=== PATIENT | female | born 1960 | race Caucasian/White ===

== ENCOUNTER 2017-03-06 13:46 | Emergency (ER) | payer BC, OTHER ==
[~2017-03-06] VITALS: Ht 162.6 cm; Wt 78.4 kg
[2017-03-06 14:02] VITALS: Ht 162.6 cm; Wt 78.4 kg
[2017-03-06] MEDS ORDERED: ONDANSETRON (ODT) 4 MG TAB ODT STA (14:21)
--- NOTE | 2017-03-06 14:26 | ERD ---
ER Documentation Chief Complaint Chief Complaint Pt with RUQ pain x2 and vomiting. Had butch 1 week ago. HPI Patient is a 56-year-old female who presents with gradual onset, constant, moderate epigastric and right upper quadrant pain for 4 days associated with vomiting. The patient had a cholecystectomy at [facility] by Dr. Douglas 8 days ago. She states that she missed a follow-up appointment 4 days ago and has been unable to arrange follow-up with him since that time. She denies fever but states that she feels hot and cold at night. She reports being constipated but had a small bowel movement yesterday. She denies dysuria. ROS All systems reviewed and are negative except as per history of present illness. Medications Home Meds Active Scripts Polyethylene Glycol* (Miralax*) 17 Gm Powd.pack, 17 GM PO DAILY, #7 Prov:EARNESTINE BRENNER MD 03/06/17 Famotidine* (Pepcid*) 20 Mg Tablet, 20 MG PO BID for 7 Days, TAB Prov:EARNESTINE BRENNER MD 03/06/17 Tramadol HCl (Tramadol HCl) 50 Mg Tablet, 50 MG PO Q4 Y for PAIN, #20 TAB Prov:EARNESTINE BRENNER MD 03/06/17 Allergies Allergies: Coded Allergies: No Known Allergy (Unverified , 03/06/17) PMhx/Soc Past medical history: Diabetes mellitus Past surgical history: Cholecystectomy, , leg surgery Social history: Denies tobacco or alcohol FmHx Noncontributory Physical Exam Vitals Vital Signs Date Time Temp Pulse Resp B/P Pulse Ox O2 Delivery O2 Flow Rate FiO2 03/06/17 15:21 97.7 03/06/17 14:02 99.6 78 18 181/88 98 Physical Exam Const: Alert, appears mildly uncomfortable Head: Atraumatic Eyes: Normal Conjunctiva, No pallor, no icterus ENT: Normal External Ears, Nose and Mouth. Mucous membranes moist Neck: Full range of motion. Resp: Clear to auscultation bilaterally, No wheezes, no rales Cardio: Regular rate and rhythm, no murmurs Abd: Soft, Nondistended, tender in the right upper quadrant and epigastrium without rebound or guarding Skin: No petechiae or rashes, No erythema or induration surrounding surgical site. Dry gauze covering president & founder scopic wounds. Back: No midline or flank tenderness Ext: No cyanosis, or edema Neur: Awake and alert, Cranial nerves II through XII intact bilaterally, strength and sensation full in 4 extremities. Psych: Normal Mood and Affect Result Diagram: 03/06/17 1455 03/06/17 1455 Results 24 hrs Laboratory Tests Test 03/06/17 14:55 White Blood Count 6.310^3/ul Red Blood Count 4.1210^6/ul Hemoglobin 12.8g/dl Hematocrit 36.3% Mean Corpuscular Volume 88.1fl Mean Corpuscular Hemoglobin 31.1pg Mean Corpuscular Hemoglobin Concent 35.3g/dl Red Cell Distribution Width 12.3% Platelet Count 82699^3/UL Mean Platelet Volume 9.2fl Neutrophils % 69.0% Lymphocytes % 20.9% Monocytes % 5.6% Eosinophils % 3.3% Basophils % 0.6% Nucleated Red Blood Cells % 0.0/100WBC Neutrophils # 4.310^3/ul Lymphocytes # 1.310^3/ul Monocytes # 0.410^3/ul Eosinophils # 0.210^3/ul Basophils # 0.010^3/ul Nucleated Red Blood Cells # 0.010^3/ul Urine Color YELLOW Urine Clarity CLEAR Urine pH 6.0 Urine Specific [place] 1.025 Urine Ketones NEGATIVEmg/dL Urine Nitrite NEGATIVEmg/dL Urine Bilirubin NEGATIVEmg/dL Urine Urobilinogen NEGATIVEmg/dL Urine Leukocyte Esterase NEGATIVELeu/ul Urine Microscopic RBC 3/HPF Urine Microscopic WBC 3/HPF Urine Mucus FEW/HPF Urine Hemoglobin NEGATIVEmg/dL Urine Glucose 3+mg/dL Urine Total Protein 3+mg/dl Sodium Level 132mmol/L Potassium Level 4.6mmol/L Chloride Level 96mmol/L Carbon Dioxide Level 30mmol/L Anion Gap 11 Blood Urea Nitrogen 15mg/dl Creatinine 1.03mg/dl Glucose Level 406mg/dl Calcium Level 8.6mg/dl Total Bilirubin 0.3mg/dl Direct Bilirubin 0.00mg/dl Indirect Bilirubin 0.3mg/dl Aspartate Amino Transf (AST/SGOT) 15IU/L Alanine Aminotransferase (ALT/SGPT) 24IU/L Alkaline Phosphatase 153IU/L Total Protein 6.9g/dl Albumin 3.4g/dl Globulin 3.50g/dl Albumin/Globulin Ratio 0.97 Lipase 79U/L Serum HCG, Qualitative NEGATIVE Current Medications Medications (Trade) Dose Ordered Sig/Jesus Route PRN Reason Start Time Stop Time Status Last Admin Dose Admin Ondansetron HCl (Zofran Odt) 4 mg ONCE STAT ODT 03/06/17 14:21 03/06/17 14:23 DC 03/06/17 15:17 Famotidine (Pepcid) 20 mg ONCE ONCE PO 03/06/17 14:30 03/06/17 14:31 DC 03/06/17 15:17 Morphine Sulfate (morphine) 4 mg ONCE STAT IV 03/06/17 16:35 03/06/17 17:56 DC 03/06/17 18:08 Metoclopramide HCl (Reglan) 10 mg ONCE ONCE IV 03/06/17 17:00 03/06/17 17:56 DC 03/06/17 18:08 IV Flush 10 ml 10 ml STK-MED ONCE .ROUTE 03/06/17 16:43 03/06/17 16:44 DC 03/06/17 16:43 Sodium Chloride (NS) 100 ml @ ud STK-MED ONCE .ROUTE 03/06/17 16:43 03/06/17 16:44 DC 03/06/17 16:43 Iohexol (Omnipaque 300mg/ ml) 150 ml STK-MED ONCE .ROUTE 03/06/17 16:43 03/06/17 16:44 DC 03/06/17 16:43 Procedures/MDM MDM: Patient is a 56-year-old female who presents with right upper quadrant and epigastric pain in the setting of recent cholecystectomy. She reports several episodes of vomiting. She has not had follow-up with her surgeon. Given the possibility of postoperative abscess, retained stone, small bowel obstruction, or other significant intra-abdominal pathology, ultrasound and CT were performed and show no significant abnormality, and only normal postoperative changes. The patient's labs were also unremarkable. She is able to tolerate oral intake in the ER. She later acknowledged running out of her p.o. morphine. I spoke with the surgeon, Dr. Lino, on-call for her surgeon, Dr. Brody, and he stated that she can follow-up in the clinic next week if she has further concerns. I will give her a prescription for tramadol, Pepcid and MiraLAX given complaint of constipation. The patient was found to have hyperglycemia in the setting of diabetes mellitus type 2. She was advised to follow-up with her PMD for medication titration. She acknowledges having a supply of medication. There is no evidence of DKA or infection. She was counseled on return precautions for fever, vomiting or severe pain. Departure Diagnosis: Primary Impression: Postoperative pain Additional Impressions: Hyperglycemia Vomiting Vomiting type: unspecified Vomiting Intractability: non-intractable Nausea presence: with nausea Qualified Code: R11.2 - Non-intractable vomiting with nausea, unspecified vomiting type Condition: EARNESTINE Christian MD Mar 06, 2017 14:26
[2017-03-06] MEDS ORDERED: FAMOTIDINE 20 MG TAB PO ONE (14:30)
--- NOTE | 2017-03-06 14:53 | RADRPT ---
AMENDMENT: 03/06/2017 2:53:32 PM Tee Lawrence M.d The gallbladder fossa is grossly unremarkable. There is no focal fluid collection. PROCEDURE: US Abdomen. CLINICAL INDICATION: abdominal pain TECHNIQUE: Multiple real-time images were acquired of the patient's right upper quadrant abdomen a nd retroperitoneum utilizing a high resolution transducer. COMPARISON: None FINDINGS: The liver demonstrates normal echogenicity. The liver is normal in size and no focal solid lesions are seen. The liver measures 15.5 cm in length. The portal vein is patent with normal direction of f low. No intrahepatic biliary dilatation is seen. The patient is status post cholecystectomy. The common bile duct measures 5 mm in maximal dimension. The pancreas was not seen due to overlying bowel gas. No free fluid is identified. The right kidney is normal in size, and demonstrate normal echogenicity and cortical thickness. The right kidney measures 10.7 cm in long dimension. There is no evidence of hydronephrosis. There are no kidney stones. RPTAT: AA IMPRESSION: Status post cholecystectomy. .Tee Lawrence MD, MD Date Time Electronically viewed and signed by .Tee Lawrence MD, MD on 03/06/2017 14:53 .S/
[2017-03-06 15:13] LABS: BASOPHILS % 0.6 % (0.0-2.0); EOSINOPHILS # 0.2 10^3/ul (0.0-0.5); EOSINOPHILS % 3.3 % (0.0-7.0); HEMATOCRIT 36.3 % (37.0-47.0); HEMOGLOBIN 12.8 g/dl (12.0-16.0); LYMPHOCYTES # 1.3 10^3/ul (0.8-2.9); LYMPHOCYTES % 20.9 % (15.0-51.0); MEAN CORPUSCULAR HEMOGLOBIN 31.1 pg (29.0-33.0); MEAN CORPUSCULAR HGB CONC 35.3 g/dl (32.0-37.0); MEAN CORPUSCULAR VOLUME 88.1 fl (82.0-101.0); MEAN PLATELET VOLUME 9.2 fl (7.4-10.4); MONOCYTE # 0.4 10^3/ul (0.3-0.9); MONOCYTES % 5.6 % (0.0-11.0); NEUTROPHIL # 4.3 10^3/ul (1.6-7.5); PLATELET COUNT 236 10^3/UL (140-415); RED BLOOD COUNT 4.12 10^6/ul (4.20-5.40); RED CELL DISTRIBUTION WIDTH 12.3 % (11.5-14.5); WHITE BLOOD COUNT 6.3 10^3/ul (4.8-10.8)
[2017-03-06 15:21] VITALS: TEMP 97.7
[2017-03-06 15:21] LABS: ADD UMIC YES; UR ASCORBIC ACID NEGATIVE (NEGATIVE); UR BILIRUBIN (Dip) NEGATIVE (NEGATIVE); UR BLOOD (Dip) NEGATIVE (NEGATIVE); UR CLARITY CLEAR (CLEAR); UR COLOR YELLOW (YELLOW); UR GLUCOSE (Dip) 3+ mg/dL (NEGATIVE); UR KETONES (Dip) NEGATIVE (NEGATIVE); UR LEUKOCYTE ESTERASE (Dip) NEGATIVE Leu/ul (NEGATIVE); UR MUCUS FEW /HPF (NONE SEEN); UR NITRITE (Dip) NEGATIVE (NEGATIVE); UR RBC 3 /HPF (0-5); UR SPECIFIC GRAVITY (Dip) 1.025 (1.003-1.030); UR TOTAL PROTEIN (Dip) 3+ mg/dl (NEGATIVE); UR UROBILINOGEN (Dip) NEGATIVE (NEGATIVE)
[2017-03-06 15:39] LABS: ALBUMIN 3.4 g/dl (3.3-4.9); ALBUMIN/GLOBULIN RATIO 0.97; BILIRUBIN,INDIRECT 0.3 mg/dl (0-1.1); BILIRUBIN,TOTAL 0.3 mg/dl (0.2-1.3); CALCIUM 8.6 mg/dl (8.4-10.2); CREATININE 1.03 mg/dl (0.44-1.00); POTASSIUM 4.6 mmol/L (3.5-5.1); TOTAL PROTEIN 6.9 g/dl (6.1-8.1)
[2017-03-06] MEDS ORDERED: morphine 4 MG/ML VIAL IV STA (16:35)
[2017-03-06] MEDS ORDERED: IOHEXOL 300MG/ML 150 ML BTL ONE (16:43)
[2017-03-06] MEDS ORDERED: SOD CHLORIDE 0.9% 100 ML ONE (16:43)
[2017-03-06] MEDS ORDERED: METOCLOPRAMIDE 10 MG INJ IV ONE (17:00)
--- NOTE | 2017-03-06 17:18 | RADRPT ---
PROCEDURE: CT ABDOMEN AND PELVIS WITH CONTRAST CLINICAL INDICATION: 56 years of age, female. Right upper quadrant pain for 2 days. 1 week status post cholecystectomy. TECHNIQUE: CT of the abdomen and pelvis was performed following administration of 90 mL IV Omnipaqu e-300. Oral contrast was not administered prior to the examination. Coronal and sagittal reformatted images were obtained from the axial source images. Images were revi ewed on a high-resolution PACS workstation. DICOM images are available. Dose information: Based on a 32 cm phantom, the estimated radiation dose (CTDIvol mGy for each serie s in this exam is 16.7. The estimated cumulative dose (DLP mGy-cm) is 1062. One or more of the following dose reduction techniques were used: - Automated exposure control. - Adjustment of the mA and/or kV according to patient size. - Use of iterative reconstruction technique. COMPARISON: None available. FINDINGS: LUNG BASES: Enlarged main pulmonary artery measuring 3.8 cm in keeping with pulmonary artery hyperte nsion. Otherwise unremarkable. ABDOMEN/PELVIS: Liver: Normal. Portal veins, splenic vein and SMV are patent. Hepatic veins are patent. Gallbladder: Status post cholecystectomy. There is mild stranding in the gallbladder fossa from rece nt surgery. Negative for a postoperative fluid collection. Bile ducts: No intrahepatic or extrahepatic biliary duct dilatation. Spleen: Normal. Pancreas: Normal. Adrenal glands: Normal. Kidneys and ureters: There are tiny bilateral nonobstructing renal calculi measuring up to 0.4 cm. K idneys are normal size and enhance normally. There is a right extrarenal pelvis. There is mild left hydronephrosis without hydroureter and without an obstructing calculus. Negative for ureteral calcul i. Aorta and IVC: Aorta is normal caliber and patent. IVC is patent. Lymph nodes: Normal. Gastrointestinal tract: Normal. Appendix: Normal Bladder: Normal. Pelvic Organs: The uterus and adnexa are unremarkable. Peritoneal cavity: No free fluid or free intraperitoneal air. 1.8 cm inflammatory nodule deep to t he abdominal wall in the right upper quadrant is likely from recent surgery (). Abdominal wall: Mild body wall edema. There are mild postsurgical changes in the abdominal wall in t he right upper quadrant from laparoscopic surgery. Fat containing abdominal wall hernia in the supra pubic midline with a defect in the deep fascia measuring 2.5 cm (602/69). Small fat containing umbil ical hernia. BONES: Musculoskeletal: Degenerative changes in the spine greatest at L2-3 where there is a prominent Schmo rl's node in the superior endplate of L3. No suspicious bone lesions. IMPRESSION: 1. Status post cholecystectomy. Mild edematous stranding in the gallbladder fossa is in keeping with recent surgery. Negative for a postoperative fluid collection. Negative for evidence of biliary obs truction. 2. Small bilateral nonobstructing renal calculi. Mild left hydronephrosis without hydroureter and wi thout an obstructing calculus may be due to mild chronic left UPJ obstruction. 3. Fat containing abdominal wall hernia in the suprapubic midline. Port sites are unremarkable. 4. Enlarged main pulmonary artery in keeping with pulmonary artery hypertension. RPTAT: HCTS Physician Williams Date Time Electronically viewed and signed by Physician Williams on 03/06/2017 17:18 /
[2017-03-06] MEDS ORDERED: POLY17PO6 PO (17:42)
[2017-03-06] MEDS ORDERED: FAMO-96 PO (17:42)
[2017-03-06] MEDS ORDERED: TRAM50TA2 PO (17:42)
== END 2017-03-06 19:00 | disposition home or self-care (01) ==
LOC: FTE 13:46
DX: G89.18 Other acute postprocedural pain (principal); E11.65 Type 2 diabetes mellitus with hyperglycemia; R11.2 Nausea with vomiting, unspecified
CPT/HCPCS: 74177; 76705; 80053; 81001; 83690; 84703; 85025; 96374; 96375; 99285; J2270; J2765; Q9967; Z7610